=== PATIENT | male | born 1970 | race Two or more races ===

== ENCOUNTER 2021-05-12 12:38 | Inpatient (IN) | payer OTHER ==
[2021-05-12] MEDS ORDERED: chlordiazePOXIDE HCL 25 MG CAPSULE PO PRN (18:34)
[2021-05-12] MEDS ORDERED: MAG HYDROX/AL HYDROX/SIMETH 30 ML UNIT-DOSE CUP PO PRN (18:34)
[2021-05-12] MEDS ORDERED: METHOCARBAMOL 500 MG TABLET PO PRN (18:34)
[2021-05-12] MEDS ORDERED: ACETAMINOPHEN 325 MG TABLET (FP) PO PRN ×2 (18:34)
[2021-05-12] MEDS ORDERED: NICOTINE 10 MG CARTRIDGE (INHALER) IH PRN (18:34)
[2021-05-12] MEDS ORDERED: ONDANSETRON *ODT* 4 MG TABLET SL PRN (18:34)
[2021-05-12] MEDS ORDERED: MAGNESIUM HYDROX 2400MG/30ML ORAL SUSPENSION 30 ML CUP PO PRN (18:34)
[2021-05-12] MEDS ORDERED: IBUPROFEN 400 MG TABLET (FP) PO PRN (18:34)
[2021-05-12] MEDS ORDERED: MENTHOL/PHENOL 1 EACH UD MM PRN (18:34)
[2021-05-12] MEDS ORDERED: BISMUTH SUBSALICYLATE 524 MG/30 ML PO PRN (18:34)
[2021-05-12] MEDS ORDERED: MAGNESIUM CITRATE 300 ML BOTTLE PO PRN (18:34)
[2021-05-12 19:50] VITALS: BMI 20.9
[2021-05-12] MEDS: MELATONIN 5 MG TABLETS PO SCH (22:25)
[2021-05-12] MEDS: THIAMINE HCL 100 MG TABLET (FP) PO SCH (22:25)
[2021-05-12] MEDS: ALBUTEROL SO4 HFA INHALER IH PRN (22:26)
[2021-05-12] MEDS: chlordiazePOXIDE HCL 25 MG CAPSULE PO SCH (22:27)
[2021-05-12] MEDS: SILVER SULFADIAZINE 1% TOP CREAM 50 GM JAR TP SCH (22:33)
[2021-05-12] MEDS: hydrOXYzine PAMOATE 25 MG CAPSULE (FP) PO SCH (22:34)
[2021-05-13] MEDS: chlordiazePOXIDE HCL 25 MG CAPSULE PO SCH ×4 (06:30→22:18)
[2021-05-13] MEDS: hydrOXYzine PAMOATE 25 MG CAPSULE (FP) PO SCH ×5 (06:30→22:18)
[2021-05-13] MEDS: PRENATAL VITAMINS W/ FOLIC ACID TABLET (FP) PO SCH (10:31)
[2021-05-13] MEDS: SILVER SULFADIAZINE 1% TOP CREAM 50 GM JAR TP SCH ×2 (10:36→22:20)
[2021-05-13 12:33] LABS: HEMATOCRIT 40.5 % (35.4-49); HEMOGLOBIN 13.1 GM/dL (11.7-16.9); MCH 29.1 pg (25.7-33.7); MCHC 32.4 g/dl (32.0-35.9); MEAN PLT VOLUME 8.1 fl (7.5-11.1); PLATELET COUNT 273 10^3/uL (134-434); RBC 4.51 M/mm3 (4.00-5.60); RDW 15.8 % (11.9-15.9); WHITE BLOOD COUNT 4.9 K/mm3 (4.0-10.0)
[2021-05-13 12:48] LABS: BILIRUBIN,TOTAL 0.5 mg/dL (0.2-1); TOT PROT 5.6 g/dl (6.4-8.2)
[2021-05-13 13:09] LABS: CREATININE 0.8 mg/dL (0.55-1.3)
[2021-05-13 13:10] LABS: CALCIUM 8.3 mg/dL (8.5-10.1)
[2021-05-13 13:11] LABS: BLOOD UREA NITROGEN 16.7 mg/dL (7-18)
[2021-05-13 16:59] LABS: EPI CELLS 14 /uL (0-25.1); HYALINE CASTS 1 /uL (0-3.1); URINE APPEARANCE CLEAR; URINE BACTERIA 42 /uL (0-1359); URINE BILIRUBIN NEGATIVE (NEGATIVE); URINE COLOR YELLOW; URINE GLUCOSE (UA) NEGATIVE (NEGATIVE); URINE KETONE NEGATIVE (NEGATIVE); URINE LEUK ESTERASE TRACE (NEGATIVE); URINE NITRITE NEGATIVE (NEGATIVE); URINE PROTEIN NEGATIVE (NEGATIVE); URINE RBC 2 /uL (0-23.9); URINE UROBILINOGEN 0.2 mg/dL (0.2-1.0); URINE WBC 47 /uL (0-25.8)
[2021-05-13] MEDS: THIAMINE HCL 100 MG TABLET (FP) PO SCH (22:18)
[2021-05-13] MEDS: MELATONIN 5 MG TABLETS PO SCH (22:18)
[2021-05-14] MEDS: chlordiazePOXIDE HCL 25 MG CAPSULE PO SCH ×3 (06:25→18:53)
[2021-05-14] MEDS: hydrOXYzine PAMOATE 25 MG CAPSULE (FP) PO SCH ×4 (06:26→18:53)
[2021-05-14] MEDS: ALBUTEROL SO4 HFA INHALER IH PRN ×2 (10:30→18:04)
[2021-05-14] MEDS: PRENATAL VITAMINS W/ FOLIC ACID TABLET (FP) PO SCH (10:30)
[2021-05-14] MEDS: SILVER SULFADIAZINE 1% TOP CREAM 50 GM JAR TP SCH (10:31)
[2021-05-14 17:27] VITALS: BP 109/58; PULSE 87; TEMP 97.1
[2021-05-15] MEDS ORDERED: chlordiazePOXIDE HCL 10 MG CAPSULE PO PRN
[2021-05-15] MEDS ORDERED: chlordiazePOXIDE HCL 10 MG CAPSULE PO SCH (05:00)
[2021-05-16] MEDS ORDERED: chlordiazePOXIDE HCL 10 MG CAPSULE PO SCH (05:00)
[2021-05-17] MEDS ORDERED: chlordiazePOXIDE HCL 10 MG CAPSULE PO ONE (05:00)
== END 2021-05-14 16:49 | disposition left against medical advice (07) | DRG 770 ==
LOC: YASAS 12:38 → Y3N 18:55
PROVIDERS: ADMIT Allergy & Immunology; ATTEND Allergy & Immunology
PROC: HZ2ZZZZ Detoxification Services for Substance Abuse Treatment (ICD-10-PCS; principal; 2021-05-12)
DX: F10.230 Alcohol dependence with withdrawal, uncomplicated (principal); F14.20 Cocaine dependence, uncomplicated; F12.20 Cannabis dependence, uncomplicated; E86.0 Dehydration; J45.909 Unspecified asthma, uncomplicated; S90.822A Blister (nonthermal), left foot, initial encounter; S90.821A Blister (nonthermal), right foot, initial encounter; X58.XXXA Exposure to other specified factors, initial encounter; Y92.89 Other specified places as the place of occurrence of the external cause; Z56.0 Unemployment, unspecified; Z59.00 Homelessness unspecified
CPT/HCPCS: 36415; 80053; 81003; 85027; 86780; 93005; 93010; C9803; U0003; U0005

== ENCOUNTER 2021-07-13 14:56 | Inpatient (IN) | payer OTHER ==
[2021-07-13 16:08] VITALS: BMI 19.5
[2021-07-13] MEDS ORDERED: ONDANSETRON *ODT* 4 MG TABLET SL PRN (20:20)
[2021-07-13] MEDS ORDERED: MAG HYDROX/AL HYDROX/SIMETH 30 ML UNIT-DOSE CUP PO PRN (20:20)
[2021-07-13] MEDS ORDERED: chlordiazePOXIDE HCL 25 MG CAPSULE PO PRN (20:20)
[2021-07-13] MEDS ORDERED: NICOTINE 10 MG CARTRIDGE (INHALER) IH PRN (20:20)
[2021-07-13] MEDS ORDERED: MAGNESIUM CITRATE 300 ML BOTTLE PO PRN (20:20)
[2021-07-13] MEDS ORDERED: IBUPROFEN 400 MG TABLET (FP) PO PRN (20:20)
[2021-07-13] MEDS ORDERED: MAGNESIUM HYDROX 2400MG/30ML ORAL SUSPENSION 30 ML CUP PO PRN (20:20)
[2021-07-13] MEDS ORDERED: BISMUTH SUBSALICYLATE 524 MG/30 ML PO PRN (20:20)
[2021-07-13] MEDS ORDERED: LOPERAMIDE HCL 2 MG CAPSULE PO PRN (20:20)
[2021-07-13] MEDS ORDERED: ACETAMINOPHEN 325 MG TABLET (FP) PO PRN ×2 (20:20)
[2021-07-13] MEDS ORDERED: MENTHOL/PHENOL 1 EACH UD MM PRN (20:20)
[2021-07-13] MEDS ORDERED: chlordiazePOXIDE HCL 25 MG CAPSULE ONE (22:49)
[2021-07-13] MEDS ORDERED: METHOCARBAMOL 500 MG TABLET ONE (22:50)
[2021-07-13] MEDS ORDERED: IBUPROFEN 400 MG TABLET (FP) PO ONE (22:50)
[2021-07-13] MEDS ORDERED: hydrOXYzine PAMOATE 25 MG CAPSULE (FP) PO ONE (22:51)
[2021-07-13] MEDS: MELATONIN 5 MG TABLETS PO SCH (22:51)
[2021-07-13] MEDS: hydrOXYzine PAMOATE 25 MG CAPSULE (FP) PO SCH (22:52)
[2021-07-13] MEDS: THIAMINE HCL 100 MG TABLET (FP) PO SCH (22:52)
[2021-07-13] MEDS: METHOCARBAMOL 500 MG TABLET PO PRN (22:53)
[2021-07-13] MEDS: chlordiazePOXIDE HCL 25 MG CAPSULE PO SCH (22:54)
[2021-07-14] MEDS ORDERED: chlordiazePOXIDE HCL 25 MG CAPSULE ONE (06:59)
[2021-07-14] MEDS ORDERED: hydrOXYzine PAMOATE 25 MG CAPSULE (FP) PO ONE (06:59)
[2021-07-14] MEDS: hydrOXYzine PAMOATE 25 MG CAPSULE (FP) PO SCH ×5 (07:01→22:50)
[2021-07-14] MEDS: chlordiazePOXIDE HCL 25 MG CAPSULE PO SCH ×4 (07:01→22:50)
[2021-07-14] MEDS: PRENATAL VITAMINS W/ FOLIC ACID TABLET (FP) PO SCH (13:12)
[2021-07-14] MEDS: THIAMINE HCL 100 MG TABLET (FP) PO SCH (22:50)
[2021-07-14] MEDS: MELATONIN 5 MG TABLETS PO SCH (22:50)
[2021-07-15] MEDS: hydrOXYzine PAMOATE 25 MG CAPSULE (FP) PO SCH ×5 (06:43→23:43)
[2021-07-15] MEDS: chlordiazePOXIDE HCL 25 MG CAPSULE PO SCH ×4 (06:43→23:43)
[2021-07-15] MEDS: PRENATAL VITAMINS W/ FOLIC ACID TABLET (FP) PO SCH (10:48)
[2021-07-15 10:55] LABS: HEMATOCRIT 43.6 % (35.4-49); HEMOGLOBIN 14.1 GM/dL (11.7-16.9); MCH 29.2 pg (25.7-33.7); MCHC 32.4 g/dl (32.0-35.9); MEAN CELL VOLUME 89.9 fl (80-96); MEAN PLT VOLUME 8.1 fl (7.5-11.1); PLATELET COUNT 299 10^3/uL (134-434); RBC 4.85 M/mm3 (4.00-5.60); RDW 14.6 % (11.9-15.9); WHITE BLOOD COUNT 5.6 K/mm3 (4.0-10.0)
[2021-07-15 10:57] LABS: ALBUMIN 3.2 g/dl (3.4-5.0); BLOOD UREA NITROGEN 13.5 mg/dL (7-18); CALCIUM 8.7 mg/dL (8.5-10.1)
[2021-07-15 11:00] LABS: CREATININE 0.8 mg/dL (0.55-1.3)
[2021-07-15 11:02] LABS: BILIRUBIN,TOTAL 0.3 mg/dL (0.2-1); TOT PROT 6.1 g/dl (6.4-8.2)
[2021-07-15] MEDS: MELATONIN 5 MG TABLETS PO SCH (23:43)
[2021-07-15] MEDS: THIAMINE HCL 100 MG TABLET (FP) PO SCH (23:44)
[2021-07-16] MEDS ORDERED: chlordiazePOXIDE HCL 10 MG CAPSULE PO PRN
[2021-07-16] MEDS: hydrOXYzine PAMOATE 25 MG CAPSULE (FP) PO SCH ×3 (06:20→13:19)
[2021-07-16] MEDS: chlordiazePOXIDE HCL 10 MG CAPSULE PO SCH ×2 (06:20→10:08)
[2021-07-16] MEDS: METHOCARBAMOL 500 MG TABLET PO PRN (10:08)
[2021-07-16] MEDS: PRENATAL VITAMINS W/ FOLIC ACID TABLET (FP) PO SCH (10:08)
[2021-07-16 12:53] VITALS: BP 122/84; PULSE 100; TEMP 97.7
[2021-07-17] MEDS ORDERED: chlordiazePOXIDE HCL 10 MG CAPSULE PO SCH (05:00)
[2021-07-18] MEDS ORDERED: chlordiazePOXIDE HCL 10 MG CAPSULE PO ONE (05:00)
== END 2021-07-16 13:41 | disposition left against medical advice (07) | DRG 770 ==
LOC: YASAS 14:56 → Y6N 07-14 10:04
PROVIDERS: ADMIT Allergy & Immunology; ATTEND Allergy & Immunology
PROC: HZ2ZZZZ Detoxification Services for Substance Abuse Treatment (ICD-10-PCS; principal; 2021-07-14)
DX: F10.230 Alcohol dependence with withdrawal, uncomplicated (principal); F14.20 Cocaine dependence, uncomplicated; F12.20 Cannabis dependence, uncomplicated; F17.210 Nicotine dependence, cigarettes, uncomplicated; J45.20 Mild intermittent asthma, uncomplicated; Z86.19 Personal history of other infectious and parasitic diseases; Z59.00 Homelessness unspecified
CPT/HCPCS: 36415; 71046-TC-FY; 80053; 85027; 86780; 87811; C9803; U0003; U0005